=== PATIENT | female | born 1985 | race African-American/Black ===

== ENCOUNTER 2021-08-05 11:28 | Emergency (ER) | payer SELFPAY ==
[2021-08-06 12:49] LABS: SARS-CoV-2 PCR by NAA DETECTED (NotDetected)
== END 2021-08-05 13:07 | disposition home or self-care (01) ==
LOC: CSHERS 11:28
DX: U07.1 COVID-19 (principal); F17.210 Nicotine dependence, cigarettes, uncomplicated
CPT/HCPCS: 87804; 99283; U0003; U0005

== ENCOUNTER 2022-04-04 11:34 | Emergency (ER) | payer OTHER | END 2022-04-04 14:23 | disposition home or self-care (01) | LOC: CSHERS 11:34 | DX: J02.9 Acute pharyngitis, unspecified (principal); F17.210 Nicotine dependence, cigarettes, uncomplicated; Z20.822 Contact with and (suspected) exposure to COVID-19 | CPT/HCPCS: 99282; U0003; U0005 ==